=== PATIENT | female | born 1940 | race Caucasian/White ===

== ENCOUNTER 2022-08-25 09:23 | Outpatient (CLI) | payer MEDICARE, BC | END 2022-08-25 09:24 | disposition EMS.NT | LOC: EMS 09:23 | DX: S49.91XA Unspecified injury of right shoulder and upper arm, initial encounter (principal); W01.0XXA Fall on same level from slipping, tripping and stumbling without subsequent striking against object, initial encounter; Y93.01 Activity, walking, marching and hiking; Y92.000 Kitchen of unspecified non-institutional (private) residence as the place of occurrence of the external cause ==

== ENCOUNTER 2022-12-16 10:11 | Emergency (ER) | payer MEDICARE, BC ==
--- NOTE | 2022-12-16 11:07 | CT Report ---
PROCEDURE: HEAD WO INDICATIONS: head injury, anticoag TECHNIQUE: Noncontrast 4.5 mm thick angled axial sections acquired from the foramen magnum to the vertex. For r adiation dose reduction, the following was used: automated exposure control, adjustment of mA and/or kV according to patient size. COMPARISON: None. FINDINGS: Image quality: Excellent. CSF spaces: Basal cisterns are patent. No extra-axial fluid collections. Ventricles are normal in size and shape. Brain: Encephalomalacia within the left anterolateral temporal lobe with adjacent sulcal prominence consistent with a remote infarct. No midline shift. No intracranial masses or hemorrhage. Terry-whit e matter interface is normal. Skull and face: Calvarium and visualized facial bones are intact, without suspicious lesions. Sinuses: Visualized sinuses and mastoids are clear. IMPRESSION: 1. No acute intracranial abnormality. 2. 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 Reviewed by: Mina Prabhakar on 12/16/2022 11:05 AM PDT Approved by: Mina Prabhakar on 12/16/2022 11:05 AM [facility] Station ID: [id number]
--- NOTE | 2022-12-16 11:48 | ED Physician Documentation ---
History of Present Illness - Stated complaint Stated Complaint: FALL/HIT HEAD - Chief complaint Chief Complaint: Trauma Hd/Nk - History obtained from History obtained from: Patient - Additonal information Additional information: The patient comes to the emergency department chief complaint of ground-level fall. She states that she was trying to walk to the toilet in her bathroom and that her left foot turns in more than the other foot. She states she often trips over that foot and as she was pivoting around, she feels that her foot "caught" and she lurched to the side, striking her head on a shelf that sits above her commode. She did not lose consciousness and denies any injuries anywhere else as far she can tell. She does take Plavix and did notice 2 large areas of swelling on her scalp after the fall. Patient's was on hand to help her up and she was able to ambulate after the fall. She denies any pain in any of her extremities. No hip pain. No neck or back pain that is new. No abdominal or chest pain. No other complaints at this time. PD PAST MEDICAL HISTORY - Past Medical History Cardiovascular: Hypertension Endocrine/Autoimmune: None Psych: Post traumatic stress disorder Musculoskeletal: Osteoarthritis, Chronic back pain - Past Surgical History Ortho: Hip replacement, Knee replacement - Allergies Allergies/Adverse Reactions: Allergies Allergy/AdvReac Type Severity Reaction Status Date / Time erythromycin base Allergy Rash Verified 12/16/22 10:30 Penicillins Allergy Rash Verified 12/16/22 10:30 Sulfa (Sulfonamide Allergy Rash Verified 12/16/22 10:30 Antibiotics) PD ED PE NORMAL - Vitals Vital signs reviewed: Yes - General General: Alert and oriented X 3, No acute distress, Well developed/nourished - HEENT HEENT: Atraumatic, PERRL, EOMI, Moist mucous membranes - Neck Neck: Supple, no meningeal sign, No bony TTP - Cardiac Cardiac: RRR, No murmur, Strong equal pulses - Respiratory Respiratory: No respiratory distress, Clear bilaterally - Abdomen Abdomen: Soft, Non tender, Non distended - Back Back: No spinal TTP, Other (Muscular tenderness over right trapezius distribution) - Derm Derm: Normal color, Warm and dry, No rash - Extremities Extremities: No deformity, No edema, Other (Well-healed surgical scar over right mid humerus. Palpable deformity which is nontender and suspect chronic.) - Neuro Neuro: Alert and oriented X 3 - Psych Psych: Normal mood, Normal affect Results - Vitals Vitals: Vital Signs - 24 hr 12/16/22 12/16/22 12/16/22 10:21 11:15 11:30 Temperature 36.6 C Heart Rate 62 61 61 Respiratory 16 10 L 16 Rate Blood Pressure 171/117 H 153/72 H 153/70 H O2 Saturation 100 100 99 12/16/22 12:30 Temperature Heart Rate 63 Respiratory 16 Rate Blood Pressure 161/60 H O2 Saturation 100 Oxygen O2 Source Room air - Rads (name of study) CT head Relevant Findings:: Final report received, See rad report (Negative) X-ray right humerus Relevant Findings:: Final report received, See rad report (No new fracture. Sideplate and screw fixation of the right mid humeral shaft fracture) PD Medical Decision Making - ED course Complexity details: reviewed results, re-evaluated patient, considered differential, d/w patient, d/w family ED course: The patient was sent for CT scan of the head, which was unremarkable. The patient was very fixated on her right upper arm even though it was not hurting and she had normal movement. She is very concerned about her prior fracture and the hardware she has there and is also concerned because she says she has neuropathy and is afraid she would not feel it normally if she had a fracture. As such, I did consent to order an x-ray of her right humerus, which did not show any acute findings. Patient is deemed stable for discharge home. We have discussed home management of the symptoms, as well as the indications for follow-up and return. Departure - Departure Disposition: 01 Home, Self Care Clinical Impression: Ground-level fall Closed head injury Qualifiers: Encounter type: initial encounter Qualified Code(s): S09.90XA - Unspecified injury of head, initial encounter Condition: Stable Instructions: ED Head Injury Closed Comments: Your CT scan looks goodthere is no evidence of any bleeding in your brain or skull fracture. The x-ray of your right humerus shows that your hardware is still in place. There is a partially healed fracture along the line of the hardware, but no evidence of a new break. Please continue to work with your primary doctor and orthopedist on any further medical issues. Discharge Date/Time: 12/16/22 12:46
[2022-12-16 12:45] VITALS: BP 161/60
--- NOTE | 2022-12-16 12:50 | XRAY Report ---
PROCEDURE: Humerus RT INDICATIONS: fall, pain, prior fracture TECHNIQUE: 2 views of the humerus were acquired. COMPARISON: None. FINDINGS: Bones: Side plate and screw fixation of a mid humeral shaft fracture. There are degenerative changes of the right shoulder with loss of the joint space and osteophyte of the humeral head. Soft tissues: No suspicious soft tissue calcifications or masses. IMPRESSION: Side plate and screw fixation of a right mid humeral shaft fracture. Reviewed by: Mina Prabhakar on 12/16/2022 12:48 PM PDT Approved by: Mina Prabhakar on 12/16/2022 12:48 PM PDT Station ID: [id number]
== END 2022-12-16 12:46 | disposition home or self-care (01) ==
LOC: ED 10:11
DX: S09.90XA Unspecified injury of head, initial encounter (principal); W01.190A Fall on same level from slipping, tripping and stumbling with subsequent striking against furniture, initial encounter; Y93.01 Activity, walking, marching and hiking; Y92.002 Bathroom of unspecified non-institutional (private) residence as the place of occurrence of the external cause
CPT/HCPCS: 36415; 99283; 99284

== ENCOUNTER 2023-04-15 01:46 | Emergency (ER) | payer MEDICARE, BC ==
[2023-04-15 02:15] VITALS: BP 152/77; O2SAT 99
--- NOTE | 2023-04-15 02:39 | ED Physician Documentation ---
History of Present Illness - Stated complaint Stated Complaint: HIGH BP - Chief complaint Chief Complaint: General - History obtained from History obtained from: Patient, Family - Additonal information Additional information: The patient comes to the emergency department chief complaint of high blood pressure. She states she is on 3 blood pressure medications and that she forgot to take them all yesterday morning. She usually takes around 730, but she got busy making her bed and then forgot that she had not yet taken her medications. The patient did not take any blood pressure medication until the evening. She states she then realized that her blood pressure was quite high, in the 190s over 100s. She states she has no symptoms whatsoever. No chest pain, shortness of breath, neurologic compromise, or headache at any time. She states that she called her power distribution engineer nurse on-call, who told her to wait an hour and see if the blood pressure improved. If it did not improve much, she was told she should come to the ED. The patient states that an hour later, her blood pressure was 188/88 which did not feel was enough of improvement so she came here. She denies taking any more medication. She states she feels fine still. No other complaints at this time. PD PAST MEDICAL HISTORY - Past Medical History Past Medical History: Yes Cardiovascular: Hypertension, High cholesterol Neuro: CVA Endocrine/Autoimmune: None Psych: Anxiety, Post traumatic stress disorder Musculoskeletal: Osteoarthritis, Chronic back pain - Past Surgical History Past Surgical History: Yes Ortho: Hip replacement, Knee replacement - Present Medications Home Medications: Ambulatory Orders Medication Instructions Recorded Confirmed Amlodipine Besylate [Norvasc] 2.5 mg PO DAILY 04/15/23 04/15/23 Atenolol [Tenormin] 50 mg PO DAILY 04/15/23 04/15/23 Citalopram Hydrobromide 10 mg PO DAILY 04/15/23 04/15/23 [Citalopram HBr] Clopidogrel [Plavix] 75 mg PO DAILY 04/15/23 04/15/23 Ezetimibe [Zetia] 10 mg PO DAILY 04/15/23 04/15/23 Gabapentin [Neurontin] 300 mg PO TID 04/15/23 04/15/23 Nortriptyline [Pamelor] 25 mg PO DAILY 04/15/23 04/15/23 Pravastatin Sodium 20 mg PO DAILY 04/15/23 04/15/23 Ranolazine [Ranolazine ER] 500 mg PO DAILY 04/15/23 04/15/23 Telmisartan 80 mg PO DAILY 04/15/23 04/15/23 methocarbamoL [Methocarbamol] 500 mg PO BID 04/15/23 04/15/23 traMADol [Ultram] 50 tab PO Q4HR PRN 04/15/23 04/15/23 - Allergies Allergies/Adverse Reactions: Allergies Allergy/AdvReac Type Severity Reaction Status Date / Time erythromycin base Allergy Rash Verified 04/15/23 02:08 Penicillins Allergy Rash Verified 04/15/23 02:08 Sulfa (Sulfonamide Allergy Rash Verified 04/15/23 02:08 Antibiotics) - Social History Does the pt smoke?: No Smoking Status: Never smoker Does the pt drink ETOH?: No Does the pt have substance abuse?: No - Immunizations Immunizations are current?: Yes - POLST Patient has POLST: No PD ED PE NORMAL - Vitals Vital signs reviewed: Yes - General General: Alert and oriented X 3, No acute distress, Well developed/nourished - HEENT HEENT: Atraumatic, PERRL, EOMI, Moist mucous membranes - Neck Neck: Supple, no meningeal sign - Cardiac Cardiac: RRR, No murmur, Strong equal pulses - Respiratory Respiratory: No respiratory distress, Clear bilaterally - Abdomen Abdomen: Soft, Non tender, Non distended - Derm Derm: Normal color, Warm and dry, No rash - Extremities Extremities: No deformity, No edema - Neuro Neuro: Alert and oriented X 3 - Psych Psych: Normal mood, Normal affect Results - Vitals Vitals: Vital Signs - 24 hr 04/15/23 01:59 Temperature 36.7 C Heart Rate 72 Respiratory 16 Rate Blood Pressure 152/77 H O2 Saturation 99 Oxygen O2 Source Room air PD Medical Decision Making - ED course Complexity details: considered differential, d/w patient ED course: I discussed with the patient that her blood pressure here is 152/77, which is not by any means concerning From an acute or emergent perspective, particularly since the patient does not have any symptoms of endorgan stress. I have discussed with the patient that at this point, she will be due for her morning medications in about 5 hours, and I would recommend at this point that she goes home and get some rest and then takes her medications later this morning as is her schedule. The patient and are agreeable to this plan. We have discussed symptoms of hypertensive emergency which should prompt the patient's immediate return to the emergency department. We discussed that if the patient notices a pattern of elevated blood pressures, she will need to talk to her doctor about whether her medication regimen should be changed. Departure - Departure Disposition: Home, Self Care Clinical Impression: Hypertension Qualifiers: Hypertension type: unspecified Qualified Code(s): I10 - Essential (primary) hypertension Condition: Stable Instructions: ED HTN Established Comments: Your blood pressure was 152/77 here in the emergency department, Which is high but certainly not dangerously so. You did not have any symptoms at any point of stress to your vital organs, and as such, we would not consider this a blood pressure emergency. Given that you have already taken your evening meds, and that your next morning meds are due in only 5 hours, there is no utility in giving you extra blood pressure medicine here in the ED. It is best if you simply try to relax and get some rest and then take your morning medications when you get up. If you find that you are running high consistently despite taking your medications as directed, then your doctor must determine whether you need to be on a different regimen or not. Forms: PCP List Discharge Date/Time: 04/15/23 03:05
== END 2023-04-15 03:05 | disposition home or self-care (01) ==
LOC: ED 01:46
DX: I10 Essential (primary) hypertension (principal)
CPT/HCPCS: 99281; 99283

== ENCOUNTER 2023-06-05 06:49 | Outpatient (CLI) | payer MEDICARE, BC | END 2023-06-05 23:59 | disposition EMS.NT | LOC: EMS 06:49 | DX: M79.652 Pain in left thigh (principal); W01.0XXA Fall on same level from slipping, tripping and stumbling without subsequent striking against object, initial encounter; Y92.002 Bathroom of unspecified non-institutional (private) residence as the place of occurrence of the external cause ==

== ENCOUNTER 2023-06-07 02:57 | Outpatient (CLI) | payer MEDICARE, BC | END 2023-06-07 23:59 | disposition EMS.NT | LOC: EMS 02:57 | DX: Z03.89 Encounter for observation for other suspected diseases and conditions ruled out (principal) ==

== ENCOUNTER 2024-01-07 15:34 | Emergency (ER) | payer MEDICARE, BC ==
--- NOTE | 2024-01-07 16:34 | ED Physician Documentation ---
History of Present Illness - Stated complaint Stated Complaint: HIGH BP,BILAT ARM TINGLES - Chief complaint Chief Complaint: General - History obtained from History obtained from: Patient - Additonal information Additional information: Patient is an 83-year-old female with a history of hypertension, prior stroke presenting for evaluation of elevated blood pressure reading. Patient states that a few hours ago after having lunch she started having numbness and tingling throughout bilateral upper extremities. She also reports feeling occasional pins and needle sensation in her chest that would last a few seconds. She done checked her blood pressure and noted that it was elevated. She had her also checked 30 minutes later and it remained elevated around 150 systolic which concerned her prompting her to come to the ER for evaluation. She denies headache. Denies chest pain, shortness of air, abdominal pain, focal weakness. Review of Systems Constitutional: denies: Fever Cardiac: reports: Chest pain / pressure Respiratory: denies: Dyspnea GI: denies: Abdominal Pain : denies: Dysuria Neurologic: denies: Focal weakness, Headache PD PAST MEDICAL HISTORY - Past Medical History Cardiovascular: Hypertension, High cholesterol Neuro: CVA Endocrine/Autoimmune: None Psych: Anxiety, Post traumatic stress disorder Musculoskeletal: Osteoarthritis, Chronic back pain - Past Surgical History Past Surgical History: Yes Ortho: Hip replacement, Knee replacement - Present Medications Home Medications: Ambulatory Orders Medication Instructions Recorded Confirmed Amlodipine Besylate [Norvasc] 2.5 mg PO DAILY 04/15/23 01/07/24 Atenolol [Tenormin] 50 mg PO DAILY 04/15/23 01/07/24 Citalopram Hydrobromide 10 mg PO DAILY 04/15/23 01/07/24 [Citalopram HBr] Clopidogrel [Plavix] 75 mg PO DAILY 04/15/23 01/07/24 Ezetimibe [Zetia] 10 mg PO DAILY 04/15/23 01/07/24 Gabapentin [Neurontin] 300 mg PO TID 04/15/23 01/07/24 Nortriptyline [Pamelor] 25 mg PO DAILY 04/15/23 01/07/24 Pravastatin Sodium 20 mg PO DAILY 04/15/23 01/07/24 Ranolazine [Ranolazine ER] 500 mg PO DAILY 04/15/23 01/07/24 Telmisartan 40 mg PO DAILY 04/15/23 01/07/24 methocarbamoL [Methocarbamol] 500 mg PO BID 04/15/23 01/07/24 traMADol [Ultram] 50 tab PO Q4HR PRN 04/15/23 01/07/24 hydroCHLOROthiazide [Hydrodiuril] 12.5 mg PO DAILY 01/07/24 01/07/24 - Allergies Allergies/Adverse Reactions: Allergies Allergy/AdvReac Type Severity Reaction Status Date / Time erythromycin base Allergy Rash Verified 01/07/24 15:51 Penicillins Allergy Rash Verified 01/07/24 15:51 Sulfa (Sulfonamide Allergy Rash Verified 01/07/24 15:51 Antibiotics) - Social History Does the pt smoke?: No Smoking Status: Never smoker Does the pt drink ETOH?: No Does the pt have substance abuse?: No - Immunizations Immunizations are current?: Yes - POLST Patient has POLST: No PD ED PE NORMAL - General General: Alert and oriented X 3, No acute distress, Well developed/nourished - HEENT HEENT: Atraumatic, PERRL, EOMI, Moist mucous membranes, Pharynx benign - Neck Neck: Supple, no meningeal sign - Cardiac Cardiac: RRR, Strong equal pulses - Respiratory Respiratory: No respiratory distress, Clear bilaterally - Abdomen Abdomen: Normal bowel sounds, Soft, Non tender, Non distended - Derm Derm: Warm and dry - Neuro Neuro: Alert and oriented X 3, design maintenance engineer 2-12 intact, No motor deficit, No sensory deficit, Normal speech Results - Vitals Vitals: Vital Signs - 24 hr 01/07/24 01/07/24 01/07/24 15:43 17:00 18:13 Temperature 36.8 C 36.7 C Heart Rate 63 64 69 Respiratory 16 10 L 13 Rate Blood Pressure 181/61 H 189/62 H 188/70 H O2 Saturation 97 100 100 Oxygen O2 Source Room air - EKG (time done) 1603 EKG releavant findings:: EKG personally interpreted by author of this note. Relevant findings are: Rate 65, sinus rhythm, no STEMI, WA 273, QTc 424 - Labs Labs: Laboratory Tests 01/07/24 01/07/24 01/07/24 16:08 16:08 17:19 WBC 6.9 RBC 3.37 L Hgb 11.1 L Hct 33.6 L MCV 99.7 H MCH 32.9 H MCHC 33.0 RDW 13.8 Plt Count 219 MPV 8.6 Neut # (Auto) 3.9 Lymph # (Auto) 2.1 [place] # (Auto) 0.8 Eos # (Auto) 0.1 Baso # (Auto) 0.0 Absolute Nucleated RBC 0.00 Nucleated RBC % 0.0 Sodium 138 Potassium 4.2 Chloride 100 L Carbon Dioxide 32 Anion Gap 6.0 BUN 22 H Creatinine 1.1 Estimated GFR (MDRD) 48 L Glucose 120 H Calcium 10.2 Total Bilirubin 0.3 AST 29 ALT 26 Alkaline Phosphatase 89 Troponin I High Sens 5.9 5.3 Total Protein 6.7 Albumin 4.0 Globulin 2.7 Albumin/Globulin Ratio 1.5 Lipase 29 PD Medical Decision Making - ED course Complexity details: reviewed results, re-evaluated patient, d/w patient ED course: Patient is a 3-year-old female presenting for evaluation of paresthesias to bilateral upper extremities and well as feeling [id number] in her chest. Was concerned because her blood pressure was elevated. On evaluation here blood pressure is elevated but she does not have any focal deficits. Her NIH is 0. Exam does not suggest a stroke. Her symptoms also seem atypical for ACS as she describes the sensation as more [id number] in her chest then chest pain. EKG was obtained and reviewed. Labs including CBC, chemistry and troponin were obtained and reviewed without significant findings. Repeat troponin is unchanged. Again symptoms are atypical for acute coronary syndrome and do not this is an acute WA given her labs including 2 sets of troponins that have been at within normal limits. Chest x-ray which I reviewed is unremarkable. Blood pressure has remained elevated here but she does not have any symptoms to suggest hypertensive emergency. Patient was counseled on need for follow-up with primary care regarding her blood pressure as well as concerning symptoms to return for. Departure - Departure Disposition: 01 Home, Self Care Clinical Impression: Hypertension, Chest pain, Paresthesia of both hands Condition: Stable Instructions: ED Chest Pain Atypical Unkn Cause, ED HTN Established Follow-Up: MAXIME ROMERO MD [Primary Care Provider] - Comments: Please have close follow-up with your primary care doctor regarding your blood pressure and for recheck in their office. You may need adjustment of your blood pressure medication. Return to the ER if you develop any worsening symptoms such as focal weakness, chest pain, headache, trouble breathing. Forms: PCP List Discharge Date/Time: 01/07/24 18:17
[2024-01-07 16:39] LABS: BASOPHILS % (AUTO) 0.3 %; EOSINOPHILS # (AUTO) 0.1 10^3/uL (0.0-0.7); EOSINOPHILS % (AUTO) 1.5 %; HCT - HEMATOCRIT 33.6 % (37.0-47.0); HGB - HEMOGLOBIN 11.1 g/dL (12.0-16.0); LYMPHOCYTES # (AUTO) 2.1 10^3/uL (1.5-3.5); MEAN CORPUSCULAR HEMOGLOBIN 32.9 pg (27.0-31.0); MEAN CORPUSCULAR VOLUME 99.7 fL (81.0-99.0); MEAN PLATELET VOLUME 8.6 fL (7.9-10.8); MONOCYTES # (AUTO) 0.8 10^3/uL (0.0-1.0); MONOCYTES % (AUTO) 11.8 %; NEUTROPHILS # (AUTO) 3.9 10^3/uL (1.5-6.6); NEUTROPHILS % (AUTO) 56.1 %; PLT - PLATELET COUNT 219 10^3/uL (130-450); RED BLOOD COUNT 3.37 10^6/uL (4.20-5.40); RED CELL DISTRIBUTION WIDTH 13.8 % (12.0-15.0); WHITE BLOOD COUNT 6.9 x10^3/uL (4.8-10.8)
[2024-01-07 17:00] LABS: TROPONIN I HIGH SENSITIVITY 5.9 ng/L (2.3-14.8)
--- NOTE | 2024-01-07 17:06 | XRAY Report ---
PROCEDURE: Chest 1V INDICATIONS: CP TECHNIQUE: One view of the chest was acquired. COMPARISON: None. FINDINGS: Surgical changes and devices: Partially visualized humeral fixation on the right. Bilateral shoulder arthritic change. Lungs and pleura: No pleural effusions or pneumothorax. Lungs are clear. Mediastinum: Mediastinal contours appear normal. Heart size is mildly prominent. Bones and chest wall: No suspicious bony lesions. Overlying soft tissues appear unremarkable. IMPRESSION: No acute cardiopulmonary process. Reviewed by: Shruti Childs MD on 01/07/2024 5:04 PM PDT Approved by: Shruti Childs MD on 01/07/2024 5:04 PM PDT Station ID: [id number]
[2024-01-07 17:07] LABS: ALBUMIN/GLOBULIN RATIO 1.5 (1.0-2.2); BILIRUBIN,TOTAL 0.3 mg/dL (0.2-1.0); CALCIUM 10.2 mg/dL (8.5-10.3); CREATININE 1.1 mg/dL (0.6-1.3); POTASSIUM 4.2 mmol/L (3.5-4.5); TOTAL PROTEIN 6.7 g/dL (6.4-8.9)
[2024-01-07 17:22] VITALS: O2SAT 100
[2024-01-07 18:19] VITALS: BP 188/70
== END 2024-01-07 18:17 | disposition home or self-care (01) ==
LOC: ED 15:34
DX: R07.9 Chest pain, unspecified (principal); R20.0 Anesthesia of skin; I10 Essential (primary) hypertension; Z79.02 Long term (current) use of antithrombotics/antiplatelets; F43.10 Post-traumatic stress disorder, unspecified; E78.00 Pure hypercholesterolemia, unspecified
CPT/HCPCS: 36415; 80053; 83690; 84484; 85025; 93005; 99283; 99284